=== PATIENT | female | born 1970 | race African-American/Black ===

== ENCOUNTER 2017-02-26 09:00 | Inpatient (IN) | payer OTHER ==
[2017-03-18 15:57] VITALS: BMI 40.1
[2017-03-19] MEDS ORDERED: MIDAZOLAM HCL 2 MG/2 ML SINGLE DOSE VIAL ONE ×3 (08:24→08:35)
[2017-03-19] MEDS ORDERED: ROCURONIUM BROMIDE 50 MG/5 ML VIAL ONE ×2 (08:24→08:53)
[2017-03-19] MEDS ORDERED: fentaNYL CITRATE 250 MCG/5 ML VIAL ONE (08:24)
[2017-03-19] MEDS ORDERED: PROPOFOL 20 ML ONE (08:25)
[2017-03-19] MEDS ORDERED: ROPIVACAINE HCL 0.5% 30ML VIAL ONE (08:38)
[2017-03-19] MEDS ORDERED: DEXAMETHASONE SOD PHOSPHATE/PF 10 MG/ML SDV ONE (08:38)
--- NOTE | 2017-03-19 08:38 | HP ---
Past Medical History - Primary Care Physician PCP:: Jack Sol - Admission Chief Complaint: pelvic pain, menometrorrhagia, anemia, fibroid uterus History of Present Illness: 47 yo f with hx of irregular vaginal bleeding , pelvic pain , anemia and large fibroid uterus admitted for supracervical abdominal hysterectomy , bilateral salpingectomy, possible BSO, rba to procedure has explained to patient History Source: Patient Limitations to Obtaining History: No Limitations - Past Medical History Cardiovascular: Yes: HTN Heme/Onc: Yes: Anemia, Thrombocytopenia - Past Surgical History Hx Myomectomy: No Hx Transabdominal Cerclage: No - Smoking History Smoking history: Never smoked Have you smoked in the past 12 months: No Aproximately how many cigarettes per day: 0 - Alcohol/Substance Use Hx Alcohol Use: No History of Substance Use: reports: None - Social History History of Recent Travel: No Home Medications - Allergies Allergies/Adverse Reactions: Allergies Allergy/AdvReac Type Severity Reaction Status Date / Time No Known Allergies Allergy Verified 03/18/17 15:46 - Home Medications Home Medications: Ambulatory Orders Amlodipine Besylate [Norvasc -] 10 mg PO DAILY 03/28/15 Hydrochlorothiazide 25 mg PO DAILY 03/28/15 Losartan Potassium [Cozaar] 100 mg PO DAILY 03/28/15 Ferrous Sulfate 325 mg PO DAILY 03/18/17 Review of Systems - Review of Systems Constitutional: reports: Weakness Eyes: reports: No Symptoms HENT: reports: No Symptoms Neck: reports: No Symptoms Cardiovascular: reports: No Symptoms Respiratory: reports: No Symptoms Gastrointestinal: reports: Abdominal Pain Genitourinary: reports: Vaginal Bleeding Breasts: reports: No Symptoms Reported Musculoskeletal: reports: No Symptoms Integumentary: reports: No Symptoms Neurological: reports: No Symptoms Endocrine: reports: No Symptoms Hematology/Lymphatic: reports: No Symptoms Psychiatric: reports: No Symptoms Physical Exam-HATCHERY ATTENDANT Constitutional: Yes: Well Nourished, No Distress, Calm Eyes: Yes: WNL, Conjunctiva Clear, EOM Intact HENT: Yes: WNL, Atraumatic, Normocephalic Neck: Yes: WNL, Supple, Trachea Midline Cardiovascular: Yes: WNL, Regular Rate and Rhythm Respiratory: Yes: WNL, Regular, CTA Bilaterally Gastrointestinal: Yes: WNL ...Rectal Exam: Yes: WNL Renal/: Yes: WNL Pelvis: Yes: Mass External Genitalia: Yes: Normal Vaginal Exam: Yes: Normal Cervix: Yes: Normal Uterus: Yes: Anteverted, Enlarged, Mass (18 to 20 weeks size) Breast(s): Yes: WNL Musculoskeletal: Yes: WNL Extremities: Yes: WNL Integumentary: Yes: WNL Neurological: Yes: WNL, Alert, Oriented ...Motor Strength: WNL Psychiatric: Yes: WNL, Alert, Oriented Problem List - Problem (1) Menometrorrhagia Code(s): N92.1 - EXCESSIVE AND FREQUENT MENSTRUATION WITH IRREGULAR CYCLE (2) Pelvic pain Code(s): R10.2 - PELVIC AND PERINEAL PAIN (3) Anemia Code(s): D64.9 - ANEMIA, UNSPECIFIED Qualifiers: Anemia type: iron deficiency Iron deficiency anemia type: chronic blood loss Qualified Code(s): D50.0 - Iron deficiency anemia secondary to blood loss (chronic) (4) Leiomyoma of body of uterus Code(s): D25.9 - LEIOMYOMA OF UTERUS, UNSPECIFIED Qualifiers: Uterine leiomyoma location: subserous Qualified Code(s): D25.2 - Subserosal leiomyoma of uterus Assessment/Plan admit for supracervical abdominal hysterectomy, bilateral salpingectomy , possible BSO
[2017-03-19] MEDS ORDERED: ceFAZolin SODIUM 1 GM VIAL IVPB ONE (11:45)
[2017-03-19] MEDS ORDERED: oxyCODONE HCL 5 MG TABLET PO PRN ×3 (13:24→14:09)
[2017-03-19] MEDS ORDERED: ONDANSETRON 4 MG/2 ML VIAL IVPUSH PRN (13:24)
--- NOTE | 2017-03-19 13:57 | CONSULT ---
Consult Consult Specialty:: Surgery Reason for Consultation:: Dilated, thickened appendix - History of Present Illness History of Present Illness: 47 female undergoing hysterectomy Noted to have a dilated, thickened appendix Intraop consult requested - Past Medical History Cardio/Vascular: Yes: HTN ...LMP: 02/20/17 - Alcohol/Substance Use Hx Alcohol Use: No History of Substance Use: reports: None - Smoking History Smoking history: Never smoked Have you smoked in the past 12 months: No Aproximately how many cigarettes per day: 0 - Social History History of Recent Travel: No Home Medications - Allergies Allergies/Adverse Reactions: Allergies Allergy/AdvReac Type Severity Reaction Status Date / Time No Known Allergies Allergy Verified 03/18/17 15:46 - Home Medications Home Medications: Ambulatory Orders Amlodipine Besylate [Norvasc -] 10 mg PO DAILY 03/28/15 Hydrochlorothiazide 25 mg PO DAILY 03/28/15 Losartan Potassium [Cozaar] 100 mg PO DAILY 03/28/15 Ferrous Sulfate 325 mg PO DAILY 03/18/17 Review of Systems Unable to obtain ROS, reason: Intraop Physical Exam Vital Signs: Vital Signs Temperature 98.4 F 03/19/17 09:10 Pulse Rate 70 03/19/17 09:10 Respiratory Rate 18 03/19/17 09:10 Blood Pressure 133/91 03/19/17 09:10 O2 Sat by Pulse Oximetry (%) Gastrointestinal: Yes: Other (Appendix- thickened and tip dilated and erythematous) Problem List - Problems (1) Appendicitis Code(s): K37 - UNSPECIFIED APPENDICITIS Qualifiers: Appendicitis type: acute appendicitis Assessment/Plan 47 female undergoing hysterectomy with distended, thickened appendix Intraop consult requested Appeared to be consistent with appendicitis Agrre that appendectomy should be performed
--- NOTE | 2017-03-19 13:59 | OP ---
Operative Note - Note: Operative Date: 03/19/17 Pre-Operative Diagnosis: Thickened, dilated appendix consistent with likely appendicits Operation: Open appendectomy Post-Operative Diagnosis: Same as Pre-op Surgeon: Saul Amos Anesthesia: General Specimens Removed: Appendix Estimated Blood Loss (mls): 0 Operative Report Dictated: Yes
[2017-03-19] MEDS: IBUPROFEN 800 MG/8 ML IJ IVPB PRN ×2 (14:00→23:12)
[2017-03-19] MEDS ORDERED: IBUPROFEN 800 MG/8 ML IJ IVPB ONE (14:05)
[2017-03-19] MEDS ORDERED: ACETAMINOPHEN 325 MG TABLET (FP) PO PRN (14:15)
[2017-03-19] MEDS ORDERED: LACTATED RINGERS SOLUTION 1,000 ML IV SCH (14:15)
[2017-03-19] MEDS: ELECTROLYTE-148 SOLN 1,000 ML IV SCH (17:04)
--- NOTE | 2017-03-19 18:21 | OP ---
DATE OF OPERATION: 03/19/2017 PREOPERATIVE DIAGNOSIS: Thick and dilated appendix, consistent with likely acute appendicitis. POSTOPERATIVE DIAGNOSIS: Thick and dilated appendix, consistent with likely acute appendicitis. PROCEDURE: Open appendectomy. SPECIMEN: Appendix. ESTIMATED BLOOD LOSS: Zero. ANESTHESIA: GET. REASON FOR PROCEDURE: This is a 47-year-old female who is undergoing an open abdominal hysterectomy by HOUSING CASE MANAGER. In the middle of the hysterectomy, there was noted to be a dilated, thickened appendix. An intraoperative consult was therefore requested. I inspected the appendix, and the appendix was noted to be elongated, dilated, and with a thickened tip, likely consistent with appendicitis. Because of this, it was agreed that the best course of action would be to proceed with appendectomy. The appendix was dissected down to the level of the base of the appendix near the cecum, and the appendix was transected using a LAMONT stapler with the white load. The staple line was noted to be intact, and no bleeding was noted. The remainder of the hysterectomy was then continued by HOUSING CASE MANAGER. SHARRON CONDE M.D. [id number]
[2017-03-19 21:54] LABS: BASOPHIL 0.2 % (0-2.0); MCHC 33.8 g/dl (32.0-36.0); MEAN CELL VOLUME 82.8 fl (80-96); MEAN PLT VOLUME 11.4 fl (7.5-11.1); NEUTROPHILS 94.2 % (42.8-82.8); PLATELET COUNT 111 K/MM3 (134-434); RDW 15.7 % (11.6-15.6)
[2017-03-20] MEDS: ELECTROLYTE-148 SOLN 1,000 ML IV SCH (03:04)
[2017-03-20] MEDS: IBUPROFEN 600 MG TABLET (FP) PO PRN ×2 (08:54→20:39)
--- NOTE | 2017-03-20 10:11 | PN ---
Progress Note (short form) - Note Progress Note: pod 1 doing well, has incisional pain CBC, BMP 03/19/17 21:30 Last Vital Signs Temp Pulse Resp BP Pulse Ox 98.6 F 65 20 131/72 99 03/20/17 05:58 03/20/17 05:58 03/20/17 05:58 03/20/17 05:58 03/19/17 21:00 abdomen soft, no distension, no cva incision dry, clean no calf tenderness plan ambulate,, advance diet pain management Problem List - Problems (1) Menometrorrhagia Code(s): N92.1 - EXCESSIVE AND FREQUENT MENSTRUATION WITH IRREGULAR CYCLE (2) Pelvic pain Code(s): R10.2 - PELVIC AND PERINEAL PAIN (3) Anemia Code(s): D64.9 - ANEMIA, UNSPECIFIED Qualifiers: Anemia type: iron deficiency Iron deficiency anemia type: chronic blood loss Qualified Code(s): D50.0 - Iron deficiency anemia secondary to blood loss (chronic) (4) Leiomyoma of body of uterus Code(s): D25.9 - LEIOMYOMA OF UTERUS, UNSPECIFIED Qualifiers: Uterine leiomyoma location: subserous Qualified Code(s): D25.2 - Subserosal leiomyoma of uterus
[2017-03-20] MEDS ORDERED: PT OWN MED DRAWER 7, Y5N ONE (10:15)
[2017-03-20] MEDS: ENOXAPARIN NA (PORCINE) 40 MG/0.4 ML DISP.SYRIN SQ SCH (10:20)
[2017-03-20] MEDS: HYDROCHLOROTHIAZIDE 25 MG TABLET (FP) PO SCH (10:20)
[2017-03-20] MEDS: amLODIPine BESYLATE 10 MG TABLET (FP) PO SCH (10:21)
[2017-03-20] MEDS: LOSARTAN POTASSIUM 100 MG TABLET PO SCH (10:21)
--- NOTE | 2017-03-20 11:36 | OP ---
DATE OF OPERATION: 03/19/2017 PREOPERATIVE DIAGNOSIS: Pelvic pain, menometrorrhagia, fibroid uterus, anemia. POSTOPERATIVE DIAGNOSIS: Pelvic pain, menometrorrhagia, fibroid uterus, anemia, with inflamed injected appendix. PROCEDURE: Supracervical abdominal hysterectomy, right salpingo-oophorectomy and left salpingectomy, and appendectomy. SURGEON: Jack Sol MD, and Saul Amos MD ANESTHESIA: General. LETTERPRESS PRINTING MACHINIST: Michelle Humphries MD DESCRIPTION OF PROCEDURE: The patient was taken to the operating room under adequate general anesthesia. Abdomen and peritoneum were prepped and draped. A Pfannenstiel abdominal skin incision was made. Abdominal wall was cut layer by layer until the peritoneum was exposed and incised. Upon entering the abdominal cavity, lower uterine segment was identified and uterovesical fold of peritoneum established. Bladder was pushed down. There was a large uterine mass consistent with multiple fibroids seen. Bowels were packed away. The round ligaments were identified bilaterally, clamped and cut with bipolar cautery. Then, bladder was further pushed down. Then, on the right side, infundibulopelvic ligament was identified, clamped with a Holly clamp, cut, and the clamp replaced with 0 Vicryl suture on the right side. Then, on the left side, the fallopian tube was removed along the mesosalpinx with the bipolar cautery. Then, the ovarian ligament was grasped with the bipolar cautery, cauterized and cut, and severed from the uterus. Then, bladder was further pushed down. Uterine arteries identified bilaterally, clamped with Holly clamp, cut, and the clamp replaced with 0 Vicryl suture bilaterally. At this time, paracervical area was grasped with a Holly clamp, cut, and the clamp replaced with 0 Vicryl suture bilaterally, and then, the specimen was removed above the cervix. Cervix was sutured with interrupted suture of the 0 Vicryl. Hemostasis was established. Then, the pelvic cavity was several times irrigated, and no active bleeding was seen. The appendix was seen to be slightly inflamed and injected. Therefore, consultation was obtained with Dr. Amos, after which, he did the appendectomy. Then, all the lap pad, sponge and instrument counts were correct. Then, peritoneum was closed with 0 Biosyn continuous suture. Muscles were brought together with interrupted suture of 0 Biosyn. Fascia was closed with 0 Biosyn continuous suture, subcutaneous fat with interrupted suture of 0 Biosyn, and then, skin was closed with sotero. Patient tolerated the procedure well, left the OR in good condition. Delma [id number]
--- NOTE | 2017-03-20 22:01 | PN ---
Progress Note (short form) - Note Progress Note: POD 1 Pain controlled Vital Signs Period Temp Pulse Resp BP Sys/Guillen Pulse Ox Last 24 Hr 97.9 F-99.3 F 65-78 18-20 103-131/62-81 96 Abd soft, incisional tenderness CBC, BMP 03/19/17 21:30 Doing well Follow up in office in 2 weeks [phone] F/U pathology of appendix Problem List - Problems (1) Appendicitis Code(s): K37 - UNSPECIFIED APPENDICITIS Qualifiers: Appendicitis type: acute appendicitis
[2017-03-21] MEDS: IBUPROFEN 600 MG TABLET (FP) PO PRN (06:31)
[2017-03-21] MEDS: amLODIPine BESYLATE 10 MG TABLET (FP) PO SCH (10:01)
[2017-03-21] MEDS: ENOXAPARIN NA (PORCINE) 40 MG/0.4 ML DISP.SYRIN SQ SCH (10:01)
[2017-03-21] MEDS ORDERED: PT OWN MED DRAWER 7, Y5N ONE (10:04)
[2017-03-21] MEDS: LOSARTAN POTASSIUM 100 MG TABLET PO SCH (10:10)
[2017-03-21] MEDS: HYDROCHLOROTHIAZIDE 25 MG TABLET (FP) PO SCH (10:11)
[2017-03-21 13:59] VITALS: BP 135/87; PULSE 88; TEMP 99
--- NOTE | 2017-03-21 15:57 | DS ---
Physical Exam-ERECTING CRANE OPERATOR Vital Signs: Vital Signs Temperature 99 F 03/21/17 13:58 Pulse Rate 88 03/21/17 13:58 Respiratory Rate 18 03/21/17 13:58 Blood Pressure 135/87 03/21/17 13:58 O2 Sat by Pulse Oximetry (%) 95 03/20/17 21:00 Constitutional: Yes: Well Nourished, No Distress, Calm Eyes: Yes: WNL, Conjunctiva Clear, EOM Intact HENT: Yes: WNL, Atraumatic, Normocephalic Neck: Yes: WNL, Supple, Trachea Midline Cardiovascular: Yes: WNL, Regular Rate and Rhythm Respiratory: Yes: WNL, Regular, CTA Bilaterally Gastrointestinal: Yes: WNL ...Rectal Exam: Yes: WNL Renal/: Yes: WNL Breast(s): Yes: WNL Musculoskeletal: Yes: WNL Extremities: Yes: WNL Edema: No Integumentary: Yes: WNL Wound/Incision: Yes: Clean/Dry, Well Approximated, [place] Intact Neurological: Yes: WNL, Alert, Oriented ...Motor Strength: WNL Psychiatric: Yes: WNL, Alert, Oriented Labs: CBC, BMP 03/19/17 21:30 Discharge Summary Reason For Visit: FIBROIDS UTERUS, PELVIC MASS Current Active Problems Anemia (Acute) Appendicitis (Acute) Leiomyoma of body of uterus (Acute) Menometrorrhagia (Acute) Pelvic pain (Acute) Procedures: Principal: supracervical abdominal hysterectomy , RT SO Condition: Good - Instructions Diet, Activity, Other Instructions: regular diet, no intercourse, if fever, pain, bleeding call MD. ramirez,follow up office 1 week Referrals: Jack Sol MD [Staff Physician] - Disposition: HOME - Home Medications Comprehensive Discharge Medication List: Ambulatory Orders Amlodipine Besylate [Norvasc -] 10 mg PO DAILY 03/28/15 Hydrochlorothiazide 25 mg PO DAILY 03/28/15 Losartan Potassium [Cozaar] 100 mg PO DAILY 03/28/15 Ferrous Sulfate 325 mg PO DAILY 03/18/17 Ibuprofen [Motrin -] 600 mg PO QID #28 tablet 03/21/17
--- NOTE | 2017-03-22 10:01 | PATH ---
Surgical Pathology Report Patient Name: DARCY CUEVAS [facility]. Rec. #: [id number] /Age/Gender: 1970 (Age: 47) / F Account: [id number] Location: [address] [place] [address] Taken: 03/19/2017 Received: 03/20/2017 Reported: 03/22/2017 Physicians: Jack Sol M.D. Specimen(s) Received A: UTRERUS BILATERAL FALLOPIAN TUBES AND RIGHT OVARY B: APPENDIX Clinical History Preoperative diagnosis: Menorrhagia, fibroids, pelvic pain, anemia Final Diagnosis A. UTERUS WITH BILATERAL FALLOPIAN TUBES AND RIGHT OVARY, SUPRACERVICAL HYSTERECTOMY BILATERAL SALPINGECTOMY AND RIGHT OOPHERECTOMY: UTERUS, 1342 GRAMS, WITH LEIOMYOMATA, ADENOMYOSIS, AND SECRETORY ENDOMETRIUM. BENIGN LEFT FALLOPIAN TUBE WITH SEROUS PARATUBAL CYSTS PRESENT. BENIGN RIGHT FALLOPIAN TUBE PRESENT. RIGHT OVARY WITH HEMORRHAGIC CORPUS LUTEUM PRESENT. B. APPENDIX, APPENDECTOMY: BENIGN APPENDIX WITH FOCAL FIBROUS OBLITERATION OF THE LUMEN. Electronically Signed Lonnie Arias M.D. Gross Description A. Received in formalin labeled "uterus, bilateral fallopian tubes and right ovary," is a 1342 g supracervically amputated uterus with bilateral attached fallopian tubes and an attached right ovary. The specimen measures 18 cm from superior to inferior, 15.5 cm from left to right and 12.0 cm from anterior to posterior. The serosa is rodriguez-reynoso with focal bulging subserosal nodules. The endometrial cavity measures 8 cm in length and 2.5 cm from cornu to cornu. The endometrium averages 0.3 cm in thickness. The myometrium displays multiple intramural nodules, measuring up to 12 cm in greatest dimension. The largest intramural nodule displays foci of degeneration. The remaining nodules are rodriguez, firm to rubbery with whorled architecture. The myometrium is rodriguez-pink and measures up to 6 cm in thickness. The left fimbriated fallopian tube measures 6 cm in length. The outer surface is reynoso purple and smooth with a 1.2 cm in greatest dimension paratubal cyst attached to the fimbria. Sectioning reveals an unremarkable lumen. The right fimbriated fallopian tube measures 5.5 cm in length. The outer surface is reynoso purple and smooth. Sectioning reveals an unremarkable lumen. The right ovary measures 4.7 x 2.3 x 1.0 cm. The outer surface is rodriguez and smooth. Sectioning reveals unremarkable ovarian parenchyma. Resistor Inspector sections are submitted in 18 cassettes as follows: 1-cervical stump margin of resection; 0-7-wilgnchw endomyometrium; 6-3-isakjhobx endomyometrium; 6-8-largest intramural nodule; 0-36-kaguwpuinq intramural nodules; 34-15-eicwcwjdoh nodules; 13-left fallopian tube fimbria with paratubal cyst; 14-cross sections of left fallopian tube; 15-right fallopian tube fimbria; 16-cross sections of right fallopian tube; 17-18-right ovary. B. Received in formalin, labeled "appendix," is a 9 cm. in length vermiform appendix with a stapled margin of resection and moderate attached fat. The serosa is rodriguez-dunn and smooth. Sectioning reveals focal fecal material within the lumen. The wall of the appendix averages 0.1 cm. in thickness. Resistor Inspector sections are submitted in one cassette. 03/20/2017 saudi03/20/2017
== END 2017-03-21 18:02 | disposition home or self-care (01) | DRG 742 ==
LOC: EDSTATUS 09:00 → JSAMEDAYSX 03-19 05:09 → J6S 03-19 20:13
PROVIDERS: ADMIT Obstetrics & Gynecology; ATTEND Obstetrics & Gynecology
PROC: 0DTJ0ZZ Resection of Appendix, Open Approach (ICD-10-PCS; principal; 2017-03-19 10:00)
PROC: 0UT90ZL Resection of Uterus, Supracervical, Open Approach (ICD-10-PCS; 2017-03-20)
PROC: 0UT00ZZ Resection of Right Ovary, Open Approach (ICD-10-PCS; 2017-03-20)
PROC: 0UB60ZZ Excision of Left Fallopian Tube, Open Approach (ICD-10-PCS; 2017-03-20)
DX: D25.9 Leiomyoma of uterus, unspecified (principal); K35.80 Unspecified acute appendicitis; I10 Essential (primary) hypertension; D64.9 Anemia, unspecified; D69.6 Thrombocytopenia, unspecified
CPT/HCPCS: 36415; 84703; 85025; 86850; 86900; 86901; 88302-TC; 88307-TC; 94010; 94760

== ENCOUNTER 2018-06-09 23:26 | Observation (INO) | payer OTHER ==
[2018-06-09 23:42] VITALS: BMI 39.6
--- NOTE | 2018-06-09 23:43 | PDOC ---
History of Present Illness - General Chief Complaint: Nausea Stated Complaint: HEADACHE/NAUSEA Time Seen by Provider: 06/09/18 23:43 History Source: Patient - History of Present Illness Initial Comments: 06/09/18 23:47 The patient is a 48 year old female with a PMH who presents with a 1 day h/o headache. States the headache started when she woke up yesterday and persisted prompting her to visit our ED this evening. Headache is global, pressure without any aura, visual or mental status changes. Denies that it is the worst headache of her life or dissimilar to her previous hypertensive headaches. No previous evaluation by neurology. States she took two of her three prescribed HTN medications (Hydrochlorothiazide, Losartan) but did not take her prescribed Norvasc because she ran out of pills a few days previous. Also took one of her PRN prescribed Metoprolol which she states she doesn't take everyday because of the effect on her HR. The patient denies chest pain, shortness of breath, abdominal pain, nausea/ vomiting, diarrhea/constipation, dysuria/hematuria. NKDA As per EMR, patient was last evaluated in our ED in 2014 with chest pain and headache. Patient was discharged home with symptomatic care. Past History - Past Medical History Allergies/Adverse Reactions: Allergies Allergy/AdvReac Type Severity Reaction Status Date / Time No Known Allergies Allergy Verified 06/09/18 23:42 Home Medications: Ambulatory Orders Amlodipine Besylate [Norvasc -] 10 mg PO DAILY 03/28/15 Hydrochlorothiazide 25 mg PO DAILY 03/28/15 Losartan Potassium [Cozaar] 100 mg PO DAILY 03/28/15 Anemia: Yes Asthma: No Cancer: No Cardiac Disorders: No CVA: No COPD: No CHF: No Dementia: No Diabetes: No (gestational only) GI Disorders: No Disorders: Yes (fibroids) HTN: Yes Hypercholesterolemia: No Liver Disease: No Seizures: No Thyroid Disease: No - Immunization History Immunization Up to Date: Yes - Suicide/Smoking/Psychosocial Hx Smoking Status: No Smoking History: Never smoked Have you smoked in the past 12 months: No Number of Cigarettes Smoked Daily: 0 Hx Alcohol Use: No Drug/Substance Use Hx: No Substance Use Type: None Hx Substance Use Treatment: No Review of Systems - Review of Systems Constitutional: No: Chills, Fever HEENTM: No: Blurred Vision, Recent change in vision Respiratory: No: Cough, Shortness of Breath Cardiac (ROS): No: Chest Pain, Lightheadedness, Palpitations, Syncope ABD/GI: No: Constipated, Nausea, Vomiting *Physical Exam - Vital Signs Last Vital Signs Temp Pulse Resp BP Pulse Ox 97.4 F L 52 L 18 159/93 97 06/09/18 23:41 06/09/18 23:41 06/09/18 23:41 06/09/18 23:41 06/09/18 23:41 - Physical Exam General Appearance: Yes: Nourished, Obese HEENT: positive: Normal Voice, Hearing Grossly Normal Neck: positive: Trachea midline, Supple Respiratory/Chest: positive: Lungs Clear, Normal Breath Sounds Cardiovascular: positive: S1, S2. negative: Edema, JVD, Murmur Vascular Pulses: Dorsalis-Pedis (R): 2+, Doralis-Pedis (L): 2+ Gastrointestinal/Abdominal: positive: Normal Bowel Sounds, Soft Neurologic: positive: weigher and grader II-XII NML intact, Fully Oriented, Alert. negative: Facial Droop, Numbness, Confused, Disoriented Moderate Sedation - Procedure Monitoring Vital Signs: Procedure Monitoring Vital Signs Temperature 97.4 F L 06/09/18 23:41 Pulse Rate 52 L 06/09/18 23:41 Respiratory Rate 18 06/09/18 23:41 Blood Pressure 159/93 06/09/18 23:41 O2 Sat by Pulse Oximetry (%) 97 06/09/18 23:41 ED Treatment Course - LABORATORY CBC & Chemistry Diagram: 06/10/18 00:35 06/10/18 00:35 Medical Decision Making - Medical Decision Making 06/10/18 00:37 48 year old female with headache, c/w previous hypertensive headaches; not the worst headache of her life. VS significant for bradycardia (50's), other VS unremarkable. No focal neurologic deficit on exam. Frontal diagnosis: SAH vs. aneursym vs. migraine. Will obtain Head CT, Head CTA, basic labs. Consider LP pending imaging results 06/10/18 02:32 Call received from Imaging mission analyst, Dr. Michael Cordoba MD CTA negative for aneursym; CT negative for bleed 2 cm x 1 cm non-specific white matter lesion, may represent area of demyelination vs. subacute stroke vs. Lyme Disease; recommend follow-up MRI Also notes 1 cm mass in RUL 06/10/18 02:36 Patient reassessed @ bedside. VSS Symptomatically improved, however still c/o headache. At this time, will admit patient for MRI to more definitively r/o 06/10/18 04:00 Case d/w Dr. Perez (covers for patient's PMD) will admit. Patient counseled on plan of care. *DC/Admit/Observation/Transfer Diagnosis at time of Disposition: Headache - Discharge Dispostion Condition at time of disposition: Fair Decision to Admit order: Yes - Referrals - Patient Instructions - Post Discharge Activity
--- NOTE | 2018-06-09 23:44 | PDOC ---
Attending Attestation - Resident Resident Name: Macey Roper - ED Attending Attestation I have performed the following: I have examined & evaluated the patient, The case was reviewed & discussed with the resident, I agree w/resident's findings & plan - HPI HPI: 48-year-old female with global headache as well as of vomiting, similar to headaches she has had in the past. Patient denies fever next stiffness or thunderclap onset. She does not describe the headache as the worst headache of her life. Patient states that she has had similar headaches for many years that she believes is due to her high blood pressure. She has not had a formal workup by neurology. - Physicial Exam PE: 06/10/18 04:01 Agree with resident exam - Medical Decision Making 06/10/18 04:01 48 yo female with global headache and hypertension CT scans of the brain as well as CTAs of the head and neck were performed which showed nonspecific left frontal lobe hypodensity possibly secondary to subacute stroke versus demyelinating disease There is also bilateral internal carotid stenosis On reevaluation patient is headache free at this time Vomiting has resolved Due to severity of symptoms and abnormal CT findings patient will be admitted for further evaluation, case discussed with covering physician for admission by the emergency department resident 06/10/18 04:04
[2018-06-10] MEDS ORDERED: DEXAMETHASONE SOD PHOSPHATE 4 MG/1 ML VIAL IVPUSH ONE (00:11)
[2018-06-10] MEDS ORDERED: METOCLOPRAMIDE HCL INJECTION 10 MG/2 ML VIAL IVPUSH ONE (00:11)
[2018-06-10] MEDS ORDERED: SODIUM CHLORIDE 0.9% 500 ML INFUS.BAG IV ONE (00:11)
[2018-06-10] MEDS ORDERED: ONDANSETRON 4 MG/2 ML VIAL IVPUSH ONE (00:17)
[2018-06-10] MEDS ORDERED: METOCLOPRAMIDE HCL INJECTION 10 MG/2 ML VIAL ONE (00:28)
[2018-06-10] MEDS ORDERED: DEXAMETHASONE SOD PHOSPHATE 4 MG/1 ML VIAL ONE (00:28)
[2018-06-10] MEDS ORDERED: ONDANSETRON 4 MG/2 ML VIAL ONE (00:28)
[2018-06-10 00:51] LABS: BASO % 0.5 % (0-2.0); EOS % 1.3 % (0-4.5); HEMATOCRIT 43.4 % (32.4-45.2); HEMOGLOBIN 14.9 GM/dL (10.7-15.3); LYMPH % 26.5 % (8-40); MCH 28.9 pg (25.7-33.7); MCHC 34.4 g/dl (32.0-36.0); MEAN CELL VOLUME 84.1 fl (80-96); NEUT % 64.7 % (42.8-82.8); PLATELET COUNT 116 K/MM3 (134-434); RBC 5.15 M/mm3 (3.60-5.2); WHITE BLOOD COUNT 5.6 K/mm3 (4.0-10.0)
[2018-06-10 01:18] LABS: ALBUMIN 3.8 g/dl (3.4-5.0); ALK PHOS 69 U/L (45-117); ANION GAP 5 MMOL/L (8-16); BILIRUBIN,TOTAL 0.5 mg/dL (0.2-1); BLOOD UREA NITROGEN 13 mg/dL (7-18); CALCIUM 8.4 mg/dL (8.5-10.1); CHLORIDE 100 mmol/L (98-107); CO2 34 mmol/L (21-32); CREATININE 0.9 mg/dL (0.55-1.3); GLUCOSE,RANDOM 121 mg/dL (74-106); POTASSIUM 3.5 mmol/L (3.5-5.1); SGOT/AST 24 U/L (15-37); SGPT/ALT 29 U/L (13-61); SODIUM 139 mmol/L (136-145); TOT PROT 7.5 g/dl (6.4-8.2)
[2018-06-10] MEDS ORDERED: amLODIPine BESYLATE 5 MG TABLET (FP) ONE (07:17)
[2018-06-10] MEDS ORDERED: amLODIPine BESYLATE 10 MG TABLET (FP) PO ONE (07:21)
--- NOTE | 2018-06-10 09:43 | CONSULT ---
Consult - text type - Consultation Consultation Note: Neurology Patient Name: DARCY CUEVAS Date of : 74 Patient Status: Observation Attending Provider: Simon Barrett Date: 06/09/18 23:43 Initialization Date: 06/09/18 23:43 History of Present Illness - General Chief Complaint: Nausea Stated Complaint: HEADACHE/NAUSEA Time Seen by Provider: 06/09/18 23:43 History Source: Patient - History of Present Illness The patient is a 48 year old female with a PMH who presents with a 1 day h/o headache. Stated the headache started when she woke up day prior to admission and persisted prompting her to visit our ED. Headache was global, pressure without any aura, visual or mental status changes. Denied that it is the worst headache and she does have history of BP and possible hypertenive. Reports symptoms improved. Per ER notes, completed CT head and CTA (no report on CTA, did not see CT head). REportedly was with possible white matter changes. Offered MRI brain but patient wanted to pursue as outpatient. Denies any symptoms or deficits and did not want to remain in hospital. Past History - Past Medical History Allergies/Adverse Reactions: Allergies Allergy/AdvReac Type Severity Reaction Status Date / Time No Known Allergies Allergy Verified 06/09/18 23:42 Home Medications: Ambulatory Orders Amlodipine Besylate [Norvasc -] 10 mg PO DAILY 03/28/15 Hydrochlorothiazide 25 mg PO DAILY 03/28/15 Losartan Potassium [Cozaar] 100 mg PO DAILY 03/28/15 Anemia: Yes Asthma: No Cancer: No Cardiac Disorders: No CVA: No COPD: No CHF: No Dementia: No Diabetes: No (gestational only) GI Disorders: No Disorders: Yes (fibroids) HTN: Yes Hypercholesterolemia: No Liver Disease: No Seizures: No Thyroid Disease: No - Immunization History Immunization Up to Date: Yes - Suicide/Smoking/Psychosocial Hx Smoking Status: No Smoking History: Never smoked Have you smoked in the past 12 months: No Number of Cigarettes Smoked Daily: 0 Hx Alcohol Use: No Drug/Substance Use Hx: No Substance Use Type: None Hx Substance Use Treatment: No *Physical Exam Vital Signs Period Temp Pulse Resp BP Sys/Guillen Pulse Ox Last 24 Hr 97.4 F-98.4 F 52-66 16-18 124-159/74-93 95-97 Gen: Awake, alert, responds to questions Card: RRR, nml S1,S2 Resp: Normal symmetric effort, lungs clear to auscultation Abdomen: Soft, nontender, bowel sounds active Musculoskeletal: Adequate range of motion without significant deformity Head atraumatic and normocephalic CN: PERRL, EOMI intact, no apparent facial droop, no abnormalities in facial sensation, palate elevates, uvula and tongue midline Motor: Full strength to confrontation in upper and lower extermities proximally and distally. Tone normal throughout Sensory: Intact to Temperature, light touch, and pinprick in all extremities Reflexes: 2+ biceps, brachioradialis, patellar, achillies Coordination: Intact on [id number] testing CBCD WBC 5.6 K/mm3 (4.0-10.0) 06/10/18 00:35 RBC 5.15 M/mm3 (3.60-5.2) 06/10/18 00:35 Hgb 14.9 GM/dL (10.7-15.3) 06/10/18 00:35 Hct 43.4 % (32.4-45.2) 06/10/18 00:35 MCV 84.1 fl (80-96) 06/10/18 00:35 MCHC 34.4 g/dl (32.0-36.0) 06/10/18 00:35 RDW 15.0 % (11.6-15.6) 06/10/18 00:35 Plt Count 116 K/MM3 (134-434) L 06/10/18 00:35 MPV 11.0 fl (7.5-11.1) 06/10/18 00:35 CMP Sodium 139 mmol/L (136-145) 06/10/18 00:35 Potassium 3.5 mmol/L (3.5-5.1) 06/10/18 00:35 Chloride 100 mmol/L (98-107) 06/10/18 00:35 Carbon Dioxide 34 mmol/L (21-32) H 06/10/18 00:35 Anion Gap 5 MMOL/L (8-16) L 06/10/18 00:35 BUN 13 mg/dL (7-18) 06/10/18 00:35 Creatinine 0.9 mg/dL (0.55-1.3) 06/10/18 00:35 Creat Clearance w eGFR > 60 (>60) 06/10/18 00:35 Random Glucose 121 mg/dL (74-106) H 06/10/18 00:35 Calcium 8.4 mg/dL (8.5-10.1) L 06/10/18 00:35 Total Bilirubin 0.5 mg/dL (0.2-1) 06/10/18 00:35 AST 24 U/L (15-37) 06/10/18 00:35 ALT 29 U/L (13-61) 06/10/18 00:35 Alkaline Phosphatase 69 U/L (45-117) 06/10/18 00:35 Total Protein 7.5 g/dl (6.4-8.2) 06/10/18 00:35 Albumin 3.8 g/dl (3.4-5.0) 06/10/18 00:35 Medical Decision Making The patient is a 48 year old female with a PMH who presents with a 1 day h/o headache. Stated the headache started when she woke up day prior to admission and persisted prompting her to visit our ED. Headache was global, pressure without any aura, visual or mental status changes. Denied that it is the worst headache and she does have history of BP and possible hypertenive. Reports symptoms improved. Per ER notes, completed CT head and CTA (no report on CTA, did not see CT head). REportedly was with possible white matter changes. Offered MRI brain but patient wanted to pursue as outpatient. Denies any symptoms or deficits and did not want to remain in hospital. Monitor bp, maintain normotensive range. Will defer MRI to outpatient. Notified Dr. Jasso. Neurologically at baseline.
[2018-06-10] MEDS ORDERED: HYDROCHLOROTHIAZIDE 25 MG TABLET (FP) PO SCH (10:00)
[2018-06-10] MEDS ORDERED: LOSARTAN POTASSIUM 50 MG TABLET (FP) PO SCH (10:00)
--- NOTE | 2018-06-10 11:53 | EKG ---
Test Reason : Blood Pressure : / mmHG Vent. Rate : 051 BPM Atrial Rate : 051 BPM P-R Int : 182 ms QRS Dur : 092 ms QT Int : 494 ms P-R-T Axes : 048 041 052 degrees QTc Int : 455 ms SINUS BRADYCARDIA POSSIBLE LEFT ATRIAL ENLARGEMENT NONSPECIFIC T WAVE ABNORMALITY ABNORMAL ECG WHEN COMPARED WITH ECG OF 28-MAR-2015 20:55, VENT. RATE HAS DECREASED BY 25 BPM Confirmed by MD JUDIE, MIGUEL ([id number]) on 06/10/2018 11:52:52 AM Referred By: Confirmed By:MIGUEL DIMAS MD
--- NOTE | 2018-06-10 16:06 | HP ---
DATE OF ADMISSION: 06/10/2018 Patient is a 48-year-old female with a history of hypertension who came to the emergency room with complaints of global headache associated with nausea since 3 days. As per the patient, she had similar episode of headache in the past when her blood pressure goes high. Patient denies any fever, neck stiffness, or any recent travel. Patient never seen Neurology. Taking the blood pressure medications. Since the headache was intractable, the patient came to the emergency room for further evaluation. MEDICATIONS: Patient is on amlodipine, Hyzaar. ALLERGIES: No known drug allergies. SOCIAL HISTORY: Lives with the family. PAST MEDICAL HISTORY: Significant for hypertension and history of anemia in the past and hypertension. PERSONAL HISTORY: Nothing significant. No history of smoking or alcohol. Lives with the family. REVIEW OF SYSTEMS: General: Patient alert and oriented. Moderately built. ENT: Headache. Cardiovascular System: History of hypertension. Respiratory System: Nothing significant. Gastrointestinal: Complains of nausea. Neurological: Complains of headache. No history of any weakness or numbness or tingling. Musculoskeletal: Normal. PHYSICAL EXAMINATION: Vital Signs: On examination of the patient in the emergency room, temperature 97.4, pulse 52, respirations 18, blood pressure 159/93, pulse oximetry 97. Head and Neck: Normal. Neck supple. No JVD. Chest: Clear. Cardiovascular System: First and second sound normal. Abdomen: Soft and no tenderness. No distention. Bowel sounds present. Extremities: No edema. Central Nervous System: Patient alert, oriented x3. Cranial nerves II through XII normal. No facial droop. Facial sensation normal. No apparent motor deficit. No apparent sensory deficit. Reflexes normal. Coordination intact on finger-nose testing. LABORATORY DATA: CBC normal except platelets 116. Chemistry: Sodium 136, potassium 3.5, chloride 100, carbon dioxide 34. BUN 13, creatinine 0.9. Sugar 121. Calcium 8.4. Liver functions normal. Chest x-ray shows prominent heart and prominent right hilum. No acute infiltrate. EKG shows sinus bradycardia, possible left atrial enlargement, nonspecific T wave abnormality. CT angiogram done in the ER, preliminary report as per the emergency room, there is nonspecific left frontal lobe hypodensity possibly secondary to demyelinating disease. Official report pending. Neurology note possibly the CT head findings might be white matter changes and recommends MRI of the brain. Patient was given Zofran IV, dexamethasone, IV fluid, injection in the emergency room, and patient was symptom-free of headache and feeling comfortable. Patient kept for observation. MRI of the brain ordered. PLAN: Continue the blood pressure medication. MRI of the brain. Will follow the official report of the CT head. Patient kept observation. Patient stable in the emergency room. MARIA FERNANDA JIMENEZ M.D. SR/[id number]
[2018-06-10 16:33] VITALS: BP 133/91; PULSE 77; TEMP 97.4
[2018-06-11] MEDS ORDERED: amLODIPine BESYLATE 10 MG TABLET (FP) PO SCH (10:00)
== END 2018-06-10 19:00 | disposition home or self-care (01) ==
LOC: JER 23:26 → JERBED 06-10 03:03 → J5S 06-10 15:53
PROVIDERS: ADMIT Family Medicine; ATTEND Family Medicine
PROC: 3E033GC Introduction of Other Therapeutic Substance into Peripheral Vein, Percutaneous Approach (ICD-10-PCS; principal; 2018-06-10)
PROC: 3E0337Z Introduction of Electrolytic and Water Balance Substance into Peripheral Vein, Percutaneous Approach (ICD-10-PCS; 2018-06-10)
DX: R51 Headache (principal); I10 Essential (primary) hypertension
CPT/HCPCS: 36415; 70496-TC; 70498-TC; 70553-TC; 71045-TC-FY; 80053; 85025; 93005; 93010; 99285-25; G0378

== ENCOUNTER 2023-03-22 04:33 | Day surgery (SDC) | payer OTHER ==
[2023-03-20 10:02] VITALS: BMI 40.8
[2023-03-22 16:27] VITALS: BP 138/69; PULSE 55; RESP 14; TEMP 97.8
== END 2023-03-22 16:36 | disposition home or self-care (01) ==
LOC: JASU-ENDO 04:33
PROVIDERS: ATTEND Internal Medicine Gastroenterology
PROC: 0DBH8ZX Excision of Cecum, Via Natural or Artificial Opening Endoscopic, Diagnostic (ICD-10-PCS; 2023-03-22)
PROC: 0DBP8ZX Excision of Rectum, Via Natural or Artificial Opening Endoscopic, Diagnostic (ICD-10-PCS; principal; 2023-03-22 13:30)
DX: Z12.11 Encounter for screening for malignant neoplasm of colon (principal); K63.5 Polyp of colon; K62.1 Rectal polyp; K64.8 Other hemorrhoids
CPT/HCPCS: 88305-TC